=== PATIENT | female | born 2000 | race Caucasian/White ===

== ENCOUNTER 2021-09-28 20:16 | Day surgery (SDC) | payer OTHER ==
[2021-09-28] MEDS ORDERED: hydrALAZINE 20 MG/ML VIAL SLOW IVP PRN (21:39)
[2021-09-28 21:50] LABS: Bilirubin Neg (Negative); Blood, Urine Negative (Negative); Clarity Clear (Clear); Glucose, Urine (Dipstick) Normal (Negative); Ketone, Urine Negative (Negative); Leukocyte 100 (Negative); Nitrite Negative (Negative); Protein, Urine (Dipstick) Negative (Neg-Trace); Urobilinogen Normal mg/dL (Less than 2)
[2021-09-28 21:51] LABS: Urine Culture Reflex No No
[2021-09-28 22:03] LABS: Bacteria/HPF 2+ HPF (None Seen); RBC/HPF None Seen HPF (0-3); Squamous Epithelial 0-3 HPF (0-3); WBC/HPF 0-3 HPF (0-3)
[2021-09-28] MEDS ORDERED: cefTRIAXone\\ROCEPHIN 1 GM VIAL IM SCH (23:00)
[2021-09-28 23:09] VITALS: BMI 20.5
[2021-09-28] MEDS ORDERED: Azithromycin 250 MG TAB PO SCH (23:15)
[2021-09-28] MEDS ORDERED: Lidocaine 1% (PF) 30 ML VIAL ONE (23:32)
[2021-09-29 18:31] LABS: Chlamydia by PCR DETECTED (NotDetected); GC by PCR Not Detected (NotDetected)
== END 2021-09-28 23:50 | disposition home or self-care (01) ==
LOC: CSHLD/OP 20:16
PROVIDERS: ATTEND Obstetrics & Gynecology
DX: O98.312 Other infections with a predominantly sexual mode of transmission complicating pregnancy, second trimester (principal); A59.00 Urogenital trichomoniasis, unspecified; O98.812 Other maternal infectious and parasitic diseases complicating pregnancy, second trimester; B37.3 Candidiasis of vulva and vagina; O23.42 Unspecified infection of urinary tract in pregnancy, second trimester; N39.0 Urinary tract infection, site not specified; O47.02 False labor before 37 completed weeks of gestation, second trimester; O09.212 Supervision of pregnancy with history of pre-term labor, second trimester; Z3A.21 21 weeks gestation of pregnancy; Z91.040 Latex allergy status; Z91.048 Other nonmedicinal substance allergy status
CPT/HCPCS: 81001; 87086; 87480; 87491; 87510; 87591; 87660; 96372; 99285; J2001

== ENCOUNTER 2021-10-04 14:45 | Day surgery (SDC) | payer OTHER | END 2021-10-04 17:23 | disposition home or self-care (01) | LOC: CSHLD/OP 14:45 | PROVIDERS: ATTEND Obstetrics & Gynecology | DX: O98.312 Other infections with a predominantly sexual mode of transmission complicating pregnancy, second trimester (principal); A56.8 Sexually transmitted chlamydial infection of other sites; A59.9 Trichomoniasis, unspecified; O98.812 Other maternal infectious and parasitic diseases complicating pregnancy, second trimester; B37.9 Candidiasis, unspecified; Z3A.22 22 weeks gestation of pregnancy; Z91.040 Latex allergy status; Z91.048 Other nonmedicinal substance allergy status | CPT/HCPCS: 76815; 99282 ==

== ENCOUNTER 2021-11-23 09:55 | Day surgery (SDC) | payer OTHER ==
[2021-11-23 10:38] VITALS: BMI 21.1
[2021-11-23] MEDS ORDERED: hydrALAZINE 20 MG/ML VIAL SLOW IVP PRN (10:42)
[2021-11-23] MEDS ORDERED: Lactated Ringer's 1,000 ML IV SCH (10:45)
[2021-11-23] MEDS ORDERED: Ondansetron PF 4 MG/2 ML Vial IVP PRN (11:16)
[2021-11-23] MEDS ORDERED: Acetaminophen 500 MG TAB PO PRN (13:33)
[2021-11-23 14:22] LABS: Bilirubin Neg (Negative); Blood, Urine 10 (Negative); Clarity Clear (Clear); Glucose, Urine (Dipstick) Normal (Negative); Ketone, Urine Negative (Negative); Leukocyte 25 (Negative); Nitrite Negative (Negative); Protein, Urine (Dipstick) 30 mg/dl (Neg-Trace)
[2021-11-23 14:25] LABS: Urine Culture Reflex No No
[2021-11-23 14:36] LABS: Bacteria/HPF Rare-Few HPF (None Seen); Squamous Epithelial 0-3 HPF (0-3)
[2021-11-24 12:36] LABS: Chlamydia by PCR Not Detected (NotDetected); GC by PCR Not Detected (NotDetected)
== END 2021-11-23 16:22 | disposition home or self-care (01) ==
LOC: CSHLD/OP 09:55
PROVIDERS: ATTEND Obstetrics & Gynecology
DX: O47.03 False labor before 37 completed weeks of gestation, third trimester (principal); O09.213 Supervision of pregnancy with history of pre-term labor, third trimester; Z3A.29 29 weeks gestation of pregnancy; Z91.040 Latex allergy status; Z91.048 Other nonmedicinal substance allergy status
CPT/HCPCS: 81001; 87077; 87086; 87480; 87491; 87510; 87591; 87660; J2405

== ENCOUNTER 2021-11-24 11:35 | Inpatient (IN) | payer OTHER ==
[2021-11-24 12:08] VITALS: BMI 21.1
[2021-11-24] MEDS ORDERED: hydrALAZINE 20 MG/ML VIAL SLOW IVP PRN ×2 (13:17→14:09)
[2021-11-24 13:38] LABS: Fetal Membranes Rupture No Membranes Rupture (No Rupture)
[2021-11-24] MEDS ORDERED: Ibuprofen 800 MG TAB PO PRN (14:09)
[2021-11-24] MEDS ORDERED: Promethazine HCl 25 MG/ML VIAL IM PRN (14:09)
[2021-11-24] MEDS ORDERED: HYDROcodone/Acetaminophen 5/325 mg Tablet PO PRN ×2 (14:09)
[2021-11-24] MEDS ORDERED: Zolpidem Tartrate 5 MG TAB PO PRN (14:09)
[2021-11-24] MEDS ORDERED: Lidocaine 1% (PF) 30 ML VIAL SC PRN (14:09)
[2021-11-24] MEDS ORDERED: Calcium Gluc 4.6 MEQ/10 ML (100 MG/ML) SLOW IVP PRN (14:11)
[2021-11-24] MEDS ORDERED: Lactated Ringer's 1,000 ML IV SCH (14:15)
[2021-11-24] MEDS ORDERED: Penicillin G Potassium 5 MILL.UNITS in Sodium Chloride 0.9% 100 ML IVPB SCH (14:15)
[2021-11-24] MEDS ORDERED: NS w/ Oxytocin 30 units 500 ML IV SCH (14:15)
[2021-11-24] MEDS: Betamet Acet/Betamet Na Ph 30 MG/5 ML VIAL IM SCH (14:17)
[2021-11-24] MEDS ORDERED: Magnesium Sulfate 20 gm/500 ml 20 GM/500 ML BAG ONE (14:18)
[2021-11-24] MEDS ORDERED: Betamet Acet/Betamet Na Ph 30 MG/5 ML VIAL ONE (14:18)
[2021-11-24] MEDS: Magnesium Sulfate 20 gm/500 ml 20 GM/500 ML BAG IVPB SCH (14:40)
[2021-11-24 14:51] LABS: Hemoglobin 9.4 g/dL (12.0-15.5); Mean Corpuscular HGB CONC 31.1 g/dL (32.0-36.0); Mean Corpuscular Hemoglobin 22.5 pg (27.0-33.0); Mean Corpuscular Volume 72.4 fl (81.6-98.3); Mean Platelet Volume 8.6 fl (7.4-10.4); Platelet Count 313 10x3/uL (150-450); RBC Distribution Width 15.2 % (11.5-14.5); Red Blood Cell (RBC) Count 4.17 10x6/uL (3.90-5.03); White Blood Cell (WBC) Count 13.3 10x3/uL (3.5-10.5)
[2021-11-24 15:23] LABS: Syphilis Antibody Nonreactive (Nonreactive); Syphilis Antibody Index 0.07 S/CO (<1.00 Non-Reactive)
[2021-11-24 15:24] LABS: Hep B Surf Ag Non-Reactive S/CO (NonReactive)
[2021-11-24 15:36] LABS: HBSAg Index 0.17 S/CO (0-0.99)
[2021-11-24 16:18] LABS: Bilirubin Neg (Negative); Blood, Urine Negative (Negative); Glucose, Urine (Dipstick) Normal (Negative); Ketone, Urine 15 mg/dL (Negative); Leukocyte Negative (Negative); Nitrite Negative (Negative); Protein, Urine (Dipstick) Negative (Neg-Trace); Specific Gravity, Urine 1.015 (1.002-1.036)
[2021-11-24 16:20] LABS: Clarity Clear (Clear)
[2021-11-24 16:25] LABS: Bacteria/HPF None Seen HPF (None Seen); RBC/HPF None Seen HPF (0-3); Squamous Epithelial 0-3 HPF (0-3); WBC/HPF None Seen HPF (0-3)
[2021-11-24 17:06] LABS: SARS-CoV-2 NAA Rapid Test Not Detected (NotDetected)
[2021-11-24] MEDS: Ondansetron PF 4 MG/2 ML Vial IVP PRN (19:40)
[2021-11-24] MEDS: Lactated Ringer's 1,000 ML IV SCH (20:39)
[2021-11-24] MEDS: Penicillin G 2.5 MILL.units 2.5 MILL.UNITS in Premix Bag 1 BAG IVPB SCH (20:40)
[2021-11-24] MEDS: Butorphanol Tartrate 1 MG/ML VIAL SLOW IVP PRN (21:02)
[2021-11-24] MEDS ORDERED: Penicillin G Potassium 5 MILL.UNITS VIAL ONE (21:03)
[2021-11-25] MEDS: Penicillin G 2.5 MILL.units 2.5 MILL.UNITS in Premix Bag 1 BAG IVPB SCH ×3 (00:56→08:57)
[2021-11-25] MEDS: Ondansetron PF 4 MG/2 ML Vial IVP PRN (01:58)
[2021-11-25] MEDS: Lactated Ringer's 1,000 ML IV SCH (04:51)
[2021-11-25 06:07] LABS: Magnesium 6.1 mg/dL (1.6-2.6)
[2021-11-25] MEDS: Magnesium Sulfate 20 gm/500 ml 20 GM/500 ML BAG IVPB SCH (07:52)
[2021-11-25] MEDS: Betamet Acet/Betamet Na Ph 30 MG/5 ML VIAL IM SCH (14:35)
[2021-11-25] MEDS: Acetaminophen 500 MG TAB PO PRN (21:04)
[2021-11-26] MEDS: Butorphanol Tartrate 1 MG/ML VIAL SLOW IVP PRN (01:16)
[2021-11-26] MEDS: Acetaminophen 500 MG TAB PO PRN (05:11)
[2021-11-26 05:34] LABS: HIV (1/2) Antibody/Antigen Non-Reactive (NonReactive); HIV 1/2 INDEX 0.12 S/CO (<1.00)
[2021-11-26] MEDS ORDERED: Ferrous Sulfate 325 MG TAB PO SCH (08:00)
[2021-11-26] MEDS ORDERED: Prenatal Vitamin 1 TAB PO SCH (09:00)
== END 2021-11-26 15:53 | disposition home or self-care (01) | DRG 833 ==
LOC: CSHLD/OP 11:35 → CSHLD 19:15
PROVIDERS: ADMIT Obstetrics & Gynecology; ATTEND Obstetrics & Gynecology
DX: O60.03 Preterm labor without delivery, third trimester (principal); Z3A.29 29 weeks gestation of pregnancy; Z20.822 Contact with and (suspected) exposure to COVID-19; F90.9 Attention-deficit hyperactivity disorder, unspecified type; O99.343 Other mental disorders complicating pregnancy, third trimester; Z91.040 Latex allergy status; Z91.048 Other nonmedicinal substance allergy status; Z91.012 Allergy to eggs
CPT/HCPCS: 36415; 51702; 76816; 81001; 83735; 84112; 85027; 86780; 86850; 86900; 86901; 87081; 87340; 87389; 87480; 87510; 87660; 94660; 99285; J0595; J0702; J2405; J2540; J3475; J3490; J7120; U0002